=== PATIENT | female | born 1945 | race Caucasian/White ===

== ENCOUNTER 2024-03-08 13:43 | Emergency (ER) | payer OTHER, MEDICAID ==
[~2024-03-08] VITALS: Ht 160 cm; Wt 44.9 kg
[2024-03-08] MEDS ORDERED: IBUPROFEN 600 MG TABLET ONE (15:16)
[2024-03-08] MEDS ORDERED: ACETAMINOPHEN 325 MG TABLET ONE (15:16)
[2024-03-08] MEDS: ACETAMINOPHEN 325 MG TABLET PO ONE (15:22)
[2024-03-08] MEDS: IBUPROFEN 600 MG TABLET PO ONE (15:22)
[2024-03-08 19:18] VITALS: BP 140/94; TEMP 98.3; O2SAT 99
== END 2024-03-08 19:19 | disposition home or self-care (01) ==
LOC: ER 13:51
DX: M25.551 Pain in right hip (principal); G89.29 Other chronic pain
CPT/HCPCS: 73502

== ENCOUNTER 2024-06-08 13:26 | Emergency (ER) | payer OTHER, MEDICAID ==
[~2024-06-08] VITALS: Ht 160 cm; Wt 2.4 kg
[2024-06-08 13:35] VITALS: TEMP 98.3
[2024-06-08 18:25] VITALS: BP 178/102; O2SAT 97
== END 2024-06-08 18:26 ==
LOC: ER 13:29
DX: H53.8 Other visual disturbances (principal)